=== PATIENT | female | born 1995 | race Caucasian/White ===

== ENCOUNTER 2021-10-11 12:58 | Outpatient (CLI) | payer OTHER ==
[~2021-10-11 12:58] MED LIST: ADVAIR 2501 DISK W/1 IH; ATROVENT 00.5 MG/2.5; NASONEX17 GM NS; SINGULAIR 10MG10 MG PO
== END 2021-10-11 14:17 | disposition home or self-care (01) ==
LOC: PRENATAL 12:58
PROVIDERS: ATTEND Obstetrics & Gynecology Maternal & Fetal Medicine
DX: O35.3XX0 Maternal care for (suspected) damage to fetus from viral disease in mother, not applicable or unspecified (principal); O35.0XX0 Maternal care for (suspected) central nervous system malformation in fetus, not applicable or unspecified

== ENCOUNTER 2022-02-21 19:02 | Outpatient (CLI) | payer OTHER | END 2022-02-22 08:20 | disposition home or self-care (01) | LOC: OBS/DEL 19:02 | PROVIDERS: ATTEND Obstetrics & Gynecology | DX: O47.1 False labor at or after 37 completed weeks of gestation (principal); Z3A.39 39 weeks gestation of pregnancy ==

== ENCOUNTER 2022-02-25 02:06 | Inpatient (IN) | payer OTHER ==
[~2022-02-25] VITALS: Ht 162.6 cm; Wt 66.7 kg
[2022-02-25] MEDS ORDERED: PRENATAL TABLE1 EAC1 PO (02:13)
== END 2022-02-27 11:22 | disposition home or self-care (01) | DRG 807 ==
LOC: OB/GYN 02:06 → LDR 02:06 → OB/GYN 08:40
PROVIDERS: ADMIT Obstetrics & Gynecology; ATTEND Obstetrics & Gynecology
PROC: 10E0XZZ Delivery of Products of Conception, External Approach (ICD-10-PCS; principal; 2022-02-25)
PROC: 4A1HXCZ Monitoring of Products of Conception, Cardiac Rate, External Approach (ICD-10-PCS; 2022-02-25)
DX: O80 Encounter for full-term uncomplicated delivery (principal); Z3A.39 39 weeks gestation of pregnancy; Z37.0 Single live birth; Z20.822 Contact with and (suspected) exposure to COVID-19